=== PATIENT | male | born 1990 | race Caucasian/White ===

== ENCOUNTER 2017-11-18 02:20 | Emergency (ER) | payer SELFPAY ==
[~2017-11-18] VITALS: Ht 165.1 cm; Wt 61.2 kg
--- NOTE | 2017-11-18 02:30 | NUR ---
BIBRA 86 FROM [facility] C/O LEFT SIDED CHEST PAIN X 1 HR [employer]. PT AOX3 RR EVEN AND UNLABORED. NO SOB NOTED. NAD NOTED. NO NVD AT THIS TIME. PT PLACED ON MONITOR. PT NOT DIAPHORETIC. PT APPEARS COMFORTABLE. WAITING FOR MD HUDSON.
--- NOTE | 2017-11-18 02:50 | NUR ---
DR. ANDREA AT BEDSIDE.
[2017-11-18] MEDS ORDERED: IBUPROFEN 600 MG TABLET PO ONE ×2 (03:00→03:45)
--- NOTE | 2017-11-18 03:14 | NUR ---
LAB AT BEDSIDE FOR BLOOD DRAW.
[2017-11-18 03:21] LABS: BASOPHILS % (AUTO) 0.2 % (0.0-2.0); EOSINOPHILS % (AUTO) 3.7 % (0.0-6.0); HEMATOCRIT 39 % (39-51); HEMOGLOBIN 13.1 g/dL (13.5-17.5); LYMPHOCYTES # (AUTO) 1.4 /CMM (0.8-4.8); LYMPHOCYTES % (AUTO) 18.5 % (20.0-44.0); MEAN CORPUSCULAR HEMOGLOBIN 29 PG (26.0-33.0); MEAN CORPUSCULAR HGB CONC 34 g/dl (31.0-36.0); MEAN CORPUSCULAR VOLUME 87 fL (80-96); MONOCYTES # (AUTO) 0.7 /CMM (0.1-1.30); MONOCYTES % (AUTO) 9.3 % (2.0-12.0); NEUTROPHILS # (AUTO) 5.2 /CMM (1.8-8.9); NEUTROPHILS % (AUTO) 68.3 % (43.0-81.0); PLATELET COUNT (AUTO) 168 /CMM (150-450); RDW COEFFICIENT OF VARIATION 13.9 (11.5-15.0); RED BLOOD CELL COUNT(AUTO) 4.49 MIL/uL (4.5-6.0); WHITE BLOOD COUNT (AUTO) 7.7 K/uL (4.3-11.0)
[2017-11-18 03:30] LABS: CALCIUM, SERUM 8.7 mg/dL (8.5-10.1); CARBON DIOXIDE 28 mmol/L (21-32); CHLORIDE 104 mmol/L (98-107); GLUCOSE 104 mg/dL (74-106); POTASSIUM 4.2 mmol/L (3.5-5.1); SODIUM SERUM 139 mmol/L (136-145); UREA NITROGEN, BLOOD 18 mg/dL (7-18)
[2017-11-18 03:35] LABS: INR 0.92 (0.87-1.13)
[2017-11-18 03:42] LABS: TROPONIN I < 0.017 ng/mL (0.00-0.056)
--- NOTE | 2017-11-18 05:10 | NUR ---
Patient is resting comfortably in bed with eyes closed. Easily aroused. VSS
--- NOTE | 2017-11-18 05:31 | NUR ---
Patient discharged to home in stable condition. Written and verbal after care instructions given. Patient verbalizes understanding of instruction. ambulatory with a steady gait. IV removed. Catheter intact and site benign. Pressure and 4x4 applied to site. No bleeding noted. STAFF PER SAUL MAHARAJ AWARE PT TO BE TRANSPORTED BACK TO FACILITY VIA [facility]
[2017-11-18 05:41] VITALS: BP 110/72
== END 2017-11-18 05:42 | disposition home or self-care (01) ==
LOC: ER 02:21
DX: R09.1 Pleurisy (principal); F41.9 Anxiety disorder, unspecified; F20.9 Schizophrenia, unspecified; F99 Mental disorder, not otherwise specified
CPT/HCPCS: 36415; 71045-TC; 80048-TC; 84484-TC; 85025-TC; 85730-TC; A4606; Z7610